=== PATIENT | female | born 1980 | race Hispanic/Latino ===

== ENCOUNTER 2019-09-20 10:28 | Observation (INO) | payer SELFPAY ==
[~2019-09-20] VITALS: Ht 144.8 cm; Wt 62.0 kg
[2019-09-20 11:54] LABS: HEMOGLOBIN 12.1 g/dl (12.0-16.0); IMMATURE GRANULOCYTES 0.2 % (0.0-5.0); MEAN CORPUSCULAR HGB 30.4 pG CALC (26.0-32.0); MEAN CORPUSCULAR HGB CONC 32.7 g/dL CAL (32.0-36.0); NEUT# 2.87 thou/uL (2.00-7.15); RED BLOOD COUNT 3.98 mill/uL (4.20-5.60); RED CELL DISTRI WIDTH 11.9 % (11.5-15.5); URINE BILIRUBIN - DIPSTICK NEGATIVE (NEGATIVE); URINE BLOOD DIPSTICK TRACE-INTACT (NEGATIVE); URINE COLOR YELLOW; URINE GLUCOSE - DIPSTICK NEGATIVE (NEGATIVE); URINE KETONE NEGATIVE (NEGATIVE); URINE LEUK ESTERASE NEGATIVE (NEGATIVE); URINE NITRITE - DIPSTICK NEGATIVE (Negative); URINE PH 6.5 (4.5-8.0); URINE PROTEIN - DIPSTICK NEGATIVE (NEG-TRACE); URINE UROBILINOGEN - DIPSTICK 0.2 E.U./dL (0.2)
[2019-09-20 12:13] LABS: BUN 7 mg/dL (7-17); BUN/CREATININE RATIO 15 (12-20 (CALC)); CHLORIDE 101 mmol/l (95-108); CREATININE 0.4 mg/dL (0.5-1.0); GFR > 60 ML/MIN (>=60 (CALC)); GFR FOR AFR.AMER. > 60 ML/MIN (>=60 (CALC)); LIPASE 83 u/l (23-300); POTASSIUM 4.1 mmol/l (3.5-5.1); SGOT/AST 24 u/l (14-36); SODIUM 135 mmol/l (137-146)
[2019-09-20 12:14] LABS: ALBUMIN 4.5 g/dL (3.2-5.0); ALKALINE PHOSPHATASE 33 u/l (38-126); ANION GAP 11 (6-22 (CALC)); BILIRUBIN, TOTAL 0.3 mg/dL (0.0-1.4); CARBON DIOXIDE 27 mmol/l (22-30); TOTAL PROTEIN 7.9 g/dL (6.3-8.2)
[2019-09-20 17:50] VITALS: BP 95/70
[2019-09-20 19:28] VITALS: BP 97/67
[2019-09-21] VITALS (9 sets, daily range): BP systolic 90–108; BP diastolic 56–74
[2019-09-21 06:05] LABS: ALBUMIN 3.5 g/dL (3.2-5.0); BILIRUBIN, TOTAL 0.5 mg/dL (0.0-1.4); TOTAL PROTEIN 6.3 g/dL (6.3-8.2)
[2019-09-21] MEDS ORDERED: PERCOCET 5/321 COMBO PO (12:26)
== END 2019-09-21 19:00 | disposition home or self-care (01) | DRG 419 ==
LOC: ED 10:28 → ED-I 14:34 → ED 15:03 → ED-I 15:04 → MS2 15:53
PROVIDERS: Family Medicine; ADMIT Surgery; ATTEND Surgery
PROC: 0FT44ZZ Resection of Gallbladder, Percutaneous Endoscopic Approach (ICD-10-PCS; principal; 2019-09-21)
DX: K80.00 Calculus of gallbladder with acute cholecystitis without obstruction (principal); Z11.59 Encounter for screening for other viral diseases
CPT/HCPCS: G0378; J0131; J2710; Q9967